=== PATIENT | female | born 1980 | race Caucasian/White ===

== ENCOUNTER 2022-01-15 18:32 | Emergency (ER) | payer OTHER ==
[2022-01-15 18:51] VITALS: BP 104/86; PULSE 100; RESP 16; TEMP 97.5; BMI 38.3
== END 2022-01-15 20:42 | disposition home or self-care (01) ==
LOC: JER 18:32
DX: B34.9 Viral infection, unspecified (principal); J45.909 Unspecified asthma, uncomplicated
CPT/HCPCS: 99283-25